=== PATIENT | male | born 1955 | race Caucasian/White ===

== ENCOUNTER 2020-03-16 00:01 | Inpatient (IN) | payer MEDICARE ==
[~2020-03-16] VITALS: Ht 160 cm; Wt 73.0 kg
[~2020-03-16 00:01] MED LIST: CYCL-1 PO; LISI10TA4 PO
[2020-03-16] MEDS ORDERED: aspirin 81mg tab.chew PO ONE (00:05)
[2020-03-16] MEDS: nitroGLYCERIN 0.4mg SUBLingual tab SL PRN ×2 (00:21→03:52)
[2020-03-16 00:32] LABS: BASOPHILS # (AUTO) 0.1 X10'3 (0-0.2); BASOPHILS % (AUTO) 1.9 % (0-1); EOSINOPHILS # (AUTO) 0.1 X10'3 (0-0.9); EOSINOPHILS % (AUTO) 1.5 % (0-6); HEMATOCRIT 46.6 % (42.0-52.0); HEMOGLOBIN 16.4 g/dl (14.0-17.9); LYMPHOCYTES # (AUTO) 1.1 X10'3 (1.1-4.8); MEAN CORPUSCULAR HEMOGLOBIN 33.5 PG (27.0-31.0); MEAN CORPUSCULAR HGB CONC 35.2 g/dL (33.0-36.5); MEAN CORPUSCULAR VOLUME 95.1 FL (78-98); MEAN PLATELET VOLUME 8.6 FL (7.4-10.4); MONOCYTES # (AUTO) 0.6 X10'3 (0-0.9); MONOCYTES % (AUTO) 8.3 % (2-12); NEUTROPHILS # (AUTO) 4.8 X10'3 (1.8-7.7); NEUTROPHILS % (AUTO) 72.3 % (42-75); PLATELET COUNT 146 X10'3 (140-440); RED CELL DISTRIBUTION WIDTH 13.9 % (11.5-14.5); WHITE BLOOD COUNT 6.7 X10'3 (4.5-11.0)
[2020-03-16 00:55] LABS: ALANINE AMINOTRANSFERASE 26 U/L (12-78); ALBUMIN 3.4 G/DL (3.4-5.0); ALBUMIN/GLOBULIN RATIO 0.8 (1.1-1.5); ALKALINE PHOSPHATASE 109 IU/L (46-116); ANION GAP 8 (8-16); ASPARTATE AMINO TRANSFERASE 18 U/L (10-37); BILIRUBIN,TOTAL 0.7 MG/DL (0.1-1.0); BLOOD UREA NITROGEN 14 MG/DL (7-18); BUN/CREATININE RATIO 14.9 (5.4-32.0); CALCIUM 9.1 MG/DL (8.5-10.1); CHLORIDE 98 MMOL/L (99-107); CREATININE 0.94 MG/DL (0.60-1.10); GLUCOSE 302 MG/DL (70-104); MAGNESIUM 1.9 MG/DL (1.5-2.4); SODIUM 134 MMOL/L (135-145); TOTAL CARBON DIOXIDE 28.4 MMOL/L (24-32); TOTAL PROTEIN 7.6 G/DL (6.4-8.2); eGFR 80 ML/MIN
[2020-03-16] MEDS ORDERED: normal saline 1000ML IV soln IVB ONE (01:10)
[2020-03-16] MEDS ORDERED: iohexol 300mg/ml 100ml inj. ONE (01:13)
[2020-03-16] MEDS ORDERED: NO HOME MEDS (01:59)
[2020-03-16 03:38] LABS: LIPASE 876 U/L (73-393)
[2020-03-16] MEDS ORDERED: MESSAGE TO PHARMACY PO ONE (04:25)
[2020-03-16] MEDS ORDERED: magnesium 4gm in 100ml NS 100 ML IV PRN (04:25)
[2020-03-16] MEDS ORDERED: potassium Cl 20 mEq SR tablet PO PRN ×2 (04:25)
[2020-03-16] MEDS ORDERED: dextrose 50%-water 50ml dispensing syringe IV PRN ×2 (04:25)
[2020-03-16] MEDS ORDERED: mag hydrox/Alum hydrox/simeth 30ml oral suspension PO PRN (04:25)
[2020-03-16] MEDS ORDERED: dextrose ORAL solution 15 GM/59 ML bottle PO PRN ×2 (04:25)
[2020-03-16] MEDS ORDERED: glucagon, human recombinant 1mg kit SUBCUT PRN (04:25)
[2020-03-16] MEDS ORDERED: acetaminophen 325mg tablet PO PRN (04:25)
[2020-03-16] MEDS ORDERED: potassium CL 10mEq/100ml bag 100 ML IV PRN ×2 (04:25)
[2020-03-16] MEDS ORDERED: ondansetron/PF 4mg/2ml inj IV PRN (04:25)
[2020-03-16] MEDS ORDERED: magnesium 2GM in 50ml NS 50 ML IV PRN (04:25)
[2020-03-16] MEDS ORDERED: magnesium hydroxide 30ml (MOM) UD suspension PO PRN (04:25)
[2020-03-16] MEDS: normal saline 1000ml 1,000 ML IV SCH ×2 (04:51→15:12)
[2020-03-16 05:42] VITALS: BP 143/81
--- NOTE | 2020-03-16 06:16 | NUR ---
Problems reprioritized. Patient report given, questions answered & plan of care reviewed with KENA PRUETT.
--- NOTE | 2020-03-16 06:43 | NUR ---
Patient in room [facility]. I have received report from FLYNN Duran and had the opportunity to ask questions and assume patient care.
[2020-03-16 07:00] VITALS: BP 168/85
[2020-03-16] MEDS: K and/or MAG REPLACEMENT MC SCH ×2 (08:00→20:00)
[2020-03-16] MEDS: enoxaparin 40mg/0.4ml syringe SQ SCH (08:28)
[2020-03-16] MEDS: hydrALAZINE 20mg/ml inj. IV PRN ×3 (08:29→23:20)
[2020-03-16] MEDS: insulin Lispro (HumaLOG) vial - multi-dose SQ SCH ×3 (08:47→19:19)
--- NOTE | 2020-03-16 09:51 | NUR ---
0700 BP 168/85. Apresoline PRN given. Re-check 1hr later 164/87.
[2020-03-16 11:10] VITALS: BP 167/87
[2020-03-16] MEDS ORDERED: HYDROcodone/acetaminophen 5mg/325mg tablet PO PRN (11:25)
[2020-03-16] MEDS ORDERED: morphine 2 MG/ML inj. syringe IV PRN (11:25)
[2020-03-16] MEDS: HYDROcodone/acetaminophen 5mg/325mg tablet PO PRN ×2 (11:48→23:20)
--- NOTE | 2020-03-16 14:54 | NUR ---
Initial: Pt admit with acute pancreatitis with EtOH hx however pt reports EtOH intake now less than 1 beer a day per H&P. Pt with new onset diabetes per H&P, BG 302 on admit and A1c 8.6%. Although pt is on hyperglycemic protocol and getting accu-checks unsure if pt has received DM dx at this time. [facility] is unable to provide DM education until pt has been given formal dx by , d/w RN. Pt on a clear liquid diet, pending documentation of PO intake. D/w RN recommendation for the addition of CHO controlled diet to diet order with MD approval. [facility] 03/15. Will continue to follow closely and provide DM education once confirmed pt has received diagnosis. Recommendations: 1) Advance to low fat CHO controlled diet as medically indicated 2) Bowel care PRN 3) Scaled weights per rx 4) DM education once confirmed pt has received DM dx by Addendum: 03/16/20 at [address] Amended: Links added.
[2020-03-16 15:46] VITALS: BP 171/96
--- NOTE | 2020-03-16 15:47 | NUR ---
Hydralazine PRN given BP 171/96. aware of pt's bp.
[2020-03-16 17:46] VITALS: BP 153/82
--- NOTE | 2020-03-16 18:52 | NUR ---
Problems reprioritized. Patient report given, questions answered & plan of care reviewed with FLYNN Duran. Pt states feeling better and ready to go home. 1720 BP 153/82. Good pain control with PRN [place].
--- NOTE | 2020-03-16 19:07 | NUR ---
Patient in room [facility]. I have received report from KENA PRUETT and had the opportunity to ask questions and assume patient care.
[2020-03-16] MEDS ORDERED: insulin glargine (Lantus) pen - multi-dose SQ SCH (21:00)
[2020-03-17] VITALS: BP 172/89
[2020-03-17] MEDS: normal saline 1000ml 1,000 ML IV SCH (00:04)
[2020-03-17 05:05] LABS: BASOPHILS % (AUTO) 0.2 % (0-1); EOSINOPHILS # (AUTO) 0.1 X10'3 (0-0.9); EOSINOPHILS % (AUTO) 2.4 % (0-6); HEMATOCRIT 43.1 % (42.0-52.0); HEMOGLOBIN 14.9 g/dl (14.0-17.9); LYMPHOCYTES % (AUTO) 17.9 % (21-51); MEAN CORPUSCULAR HEMOGLOBIN 32.9 PG (27.0-31.0); MEAN CORPUSCULAR HGB CONC 34.7 g/dL (33.0-36.5); MEAN PLATELET VOLUME 8.4 FL (7.4-10.4); MONOCYTES # (AUTO) 0.6 X10'3 (0-0.9); MONOCYTES % (AUTO) 11.9 % (2-12); NEUTROPHILS # (AUTO) 3.7 X10'3 (1.8-7.7); NEUTROPHILS % (AUTO) 67.6 % (42-75); PLATELET COUNT 147 X10'3 (140-440); RED BLOOD COUNT 4.53 X10'6 (4.70-6.10); WHITE BLOOD COUNT 5.4 X10'3 (4.5-11.0)
[2020-03-17 05:18] LABS: ALANINE AMINOTRANSFERASE 22 U/L (12-78); ALBUMIN 2.8 G/DL (3.4-5.0); ALBUMIN/GLOBULIN RATIO 0.8 (1.1-1.5); ALKALINE PHOSPHATASE 84 IU/L (46-116); ANION GAP 7 (8-16); ASPARTATE AMINO TRANSFERASE 16 U/L (10-37); BILIRUBIN,TOTAL 1.1 MG/DL (0.1-1.0); BLOOD UREA NITROGEN 10 MG/DL (7-18); BUN/CREATININE RATIO 14.3 (5.4-32.0); CALCIUM 7.9 MG/DL (8.5-10.1); CHLORIDE 103 MMOL/L (99-107); GLUCOSE 133 MG/DL (70-104); LIPASE 269 U/L (73-393); MAGNESIUM 1.6 MG/DL (1.5-2.4); POTASSIUM 3.8 MMOL/L (3.5-5.1); SODIUM 136 MMOL/L (135-145); TOTAL CARBON DIOXIDE 26.3 MMOL/L (24-32); TOTAL PROTEIN 6.2 G/DL (6.4-8.2); eGFR > 90 ML/MIN
--- NOTE | 2020-03-17 06:43 | NUR ---
Problems reprioritized. Patient report given, questions answered & plan of care reviewed with Sapna PRUETT.
--- NOTE | 2020-03-17 06:52 | NUR ---
Patient in room [facility]. I have received report from FLYNN Duran and had the opportunity to ask questions and assume patient care.
[2020-03-17 07:00] VITALS: BP 132/79
[2020-03-17] MEDS ORDERED: lisinopril 5mg tablet PO SCH (08:00)
[2020-03-17] MEDS: enoxaparin 40mg/0.4ml syringe SQ SCH (08:00)
[2020-03-17 08:27] VITALS: BP_SYST 132
[2020-03-17] MEDS: insulin Lispro (HumaLOG) vial - multi-dose SQ SCH (08:37)
[2020-03-17] MEDS ORDERED: GLIM1TAB6 PO (09:51)
[2020-03-17] MEDS ORDERED: LISI-642 PO (09:51)
[2020-03-17] MEDS ORDERED: HYDR-4383 PO (09:51)
--- NOTE | 2020-03-17 10:33 | NUR ---
Pt D/C'd home in stable condition. Diabetes education, medication, and discharge instructions given to pt. IV removed with cannula intact. Pt was escorted walking to main lobby. Left the hospital via private vehicle accompanied buy .
--- NOTE | 2020-03-17 13:21 | NUR ---
F/u: Pt discharged prior to RD visit; written new DM ed handout, new DM pamphlet, and RD contact information mailed to pt address per EMR. Addendum: 03/17/20 at [address] Amended: Links added.
== END 2020-03-17 10:14 | disposition home or self-care (01) | DRG 439 ==
LOC: ER 00:01 → ED HOLD 04:21 → SUR 3N 05:15
PROVIDERS: ADMIT Family Medicine; ATTEND Internal Medicine
PROC: BW211ZZ Computerized Tomography (CT Scan) of Abdomen and Pelvis using Low Osmolar Contrast (ICD-10-PCS; principal; 2020-03-16)
DX: K85.20 Alcohol induced acute pancreatitis without necrosis or infection (principal); K76.6 Portal hypertension; E87.1 Hypo-osmolality and hyponatremia; K56.7 Ileus, unspecified; K70.30 Alcoholic cirrhosis of liver without ascites; B19.20 Unspecified viral hepatitis C without hepatic coma; I16.0 Hypertensive urgency; F10.10 Alcohol abuse, uncomplicated; K72.90 Hepatic failure, unspecified without coma; E11.65 Type 2 diabetes mellitus with hyperglycemia; F17.210 Nicotine dependence, cigarettes, uncomplicated; I10 Essential (primary) hypertension; Z79.84 Long term (current) use of oral hypoglycemic drugs; Z80.0 Family history of malignant neoplasm of digestive organs; Z83.3 Family history of diabetes mellitus; Z79.899 Other long term (current) drug therapy; Z90.49 Acquired absence of other specified parts of digestive tract; Z71.6 Tobacco abuse counseling
CPT/HCPCS: 36415; 71045; 74177; 80053; 82948; 83036; 83605; 83690; 83735; 83880; 84484; 85025; 87081; 93005; 97161; 97530; 99285; G0378; J0360; J1650; J1815; J7030; Q9967